=== PATIENT | male | born 1975 | race Caucasian/White ===

== ENCOUNTER 2023-01-20 14:43 | Outpatient (REF) | payer OTHER, SELFPAY ==
--- NOTE | ~2023-01-20 | XR_ITS ---
EXAMINATION: XR LUMBOSACRAL SPINE WITH OBLIQUES CLINICAL INFORMATION: Other intervertebral body disc degeneration lumbar region COMPARISON: None available. TECHNIQUE: 4 views of the lumbar spine including flexion-extension views FINDINGS: No fracture. There is very mild anterior subluxation of L3 with respect to L2 and L4 measuring 2 to 3 mm. This remains stable on flexion-extension. There is degenerative spondylosis and degenerative disc disease at L3-L4. There is lower lumbar spine facet arthritis. XR/XR lumbar spine 4V min IMPRESSION: Mild 2 to 3 mm anterior subluxation of L3 with respect to L2 and L4 stable on flexion-extension views. Degenerative changes at L3-L4 and lower lumbar spine facet arthritis.
== END 2023-01-20 14:44 | disposition home or self-care (01) ==
LOC: HO.HOSX 14:43
PROVIDERS: PCP Internal Medicine; Visit Provider Neurological Surgery
DX: M51.36 Other intervertebral disc degeneration, lumbar region (principal)
CPT/HCPCS: 72110; 99212